=== PATIENT | female | born 1980 | race African-American/Black ===

== ENCOUNTER 2016-09-16 20:40 | Emergency (ER) | payer OTHER ==
[~2016-09-16] VITALS: Ht 180.3 cm; Wt 115.2 kg
[~2016-09-16 20:40] MED LIST: AMOXICILLIN500 MG ORAL; IBUPROFEN600 MG ORAL
[2016-09-16] MEDS ORDERED: NKM (21:08)
[2016-09-16] MEDS ORDERED: CYCLOBENZAPRINE10 MG ORAL (21:39)
[2016-09-16] MEDS ORDERED: Cyclobenzaprine 10mg Tab ORAL ONE (21:45)
[2016-09-16 22:01] LABS: APPEARANCE,URINE SLIGHTLY CLOUDY; KETONES,URINE NEGATIVE (NEGATIVE); LEUKOCYTE ESTERASE ,URINE 3+ (NEGATIVE); NITRITE,URINE NEGATIVE (NEGATIVE); PH,URINE 6.5 (4.5-8.0); PROTEIN,URINE 1+ (NEGATIVE); UROBILINOGEN,URINE 1 MG/DL (0.0-1.0)
[2016-09-16 22:26] LABS: BACTERIA,URINE MODERATE /HPF; SQUAMOUS EPITHELIAL CELL,UR FEW /LPF (NONE/OCC)
[2016-09-16] MEDS ORDERED: NITROFURANTOIN100 M2 ORAL (22:30)
[2016-09-17 00:35] VITALS: BP 125/82
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
== END 2016-09-16 22:09 | disposition home or self-care (01) ==
LOC: EMR 21:10
DX: S39.012A Strain of muscle, fascia and tendon of lower back, initial encounter (principal); V43.62XA Car passenger injured in collision with other type car in traffic accident, initial encounter; Y92.410 Unspecified street and highway as the place of occurrence of the external cause; N39.0 Urinary tract infection, site not specified; M51.36 Other intervertebral disc degeneration, lumbar region
CPT/HCPCS: 72020; 81001; 81025; 87086; 99284

== ENCOUNTER 2016-09-18 10:27 | Emergency (ER) | payer OTHER ==
[~2016-09-18] VITALS: Ht 180.3 cm; Wt 95.3 kg
[~2016-09-18 10:27] MED LIST changes: +CYCLOBENZAPRINE10 MG ORAL; +NITROFURANTOIN100 M2 ORAL; +NKM
[2016-09-18 10:40] VITALS: BP 105/70
[2016-09-18 10:45] VITALS: BP 105/70
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
== END 2016-09-18 10:45 | disposition home or self-care (01) ==
LOC: EMR 10:40
DX: Z02.79 Encounter for issue of other medical certificate (principal); M54.5 Low back pain
CPT/HCPCS: 99281

== ENCOUNTER 2017-07-04 08:56 | Emergency (ER) | payer OTHER ==
[~2017-07-04] VITALS: Ht 180.3 cm; Wt 127.0 kg
--- NOTE | 2017-07-04 09:14 | Emergency Room Report ---
History of Present Illness General Chief Complaint: Lower Extremity Injury Source: Patient Present Illness HPI Patient is a 36-year-old female presented after increased ankle and knee pain. Patient reports having fallen last night. She stated she twisted her ankle. The patient was noted to have pain to the leg. She reports having some pain with ambulation. She denies any numbness or tingling distally. Allergies: Coded Allergies: No Known Allergies (Unverified , 09/16/16) Patient History Past Medical History: see triage record Last Menstrual Period: 07/01/17 Now: No Reviewed Nursing Documentation: PMH: Agreed, PSxH: Agreed Nursing Documentation-PMH Past Medical History: No Stated History Review of Systems All Other Systems: negative except mentioned in HPI Physical Exam Vital Signs Date Time Temp Pulse Resp B/P (MAP) Pulse Ox O2 Delivery O2 Flow Rate FiO2 07/04/17 09:01 98.2 79 18 137/80 98 Room Air 98.2 General Appearance: well appearing, no apparent distress, alert, GCS 15, obese Head: normocephalic, atraumatic ENT: hearing grossly normal, normal voice Neck: full range of motion, supple Respiratory: no respiratory distress, speaking full sentences Cardiovascular #1: normal inspection, regular rate, rhythm Gastrointestinal: normal inspection, non tender, soft Musculoskeletal: no calf tenderness, decreased range of mation, inflammation, swelling - lateral ankle Neurologic: normal inspection, alert, oriented x3, responsive, executive business coach III-XII nml as tested, motor strength/tone normal, abnormal gait - antalgic Psychiatric: mood/affect normal Skin: no rash, other - swelling left ankle lateral malleolus Medical Decision Making Diagnostic Impression: Primary Impression: Ankle sprain Additional Impression: Avulsion fracture of ankle ER Course Patient presented for ankle pain. Differential diagnosis included was not limited to sprain, fracture, dislocation, cellulitis, vascular insufficiency. X -ray imaging of the ankle was ordered. Because of complexity of patient's case imaging studies were ordered.X-ray imaging showed very small avulsion from the tibia. The patient was placed in a air cast and given crutches. The patient is advised to follow up with primary care doctor in 1-2 daysfor orthopedic referal. Patient is advised to return if any worsening condition or if any changes in status that are concerning. This report is dictated with [employer] lead inspector software which may occasionally lead to discrepancies related to use of this software. Labs Test 07/04/17 09:18 Urine HCG, Qualitative Negative Last Vital Signs Date Time Temp Pulse Resp B/P (MAP) Pulse Ox O2 Delivery O2 Flow Rate FiO2 07/04/17 09:01 98.2 79 18 137/80 98 Room Air 98.2 Status: improved Disposition: HOME, SELF-CARE Condition: Stable Scripts Hydrocodone Bit/Acetaminophen 5-325* (NORCO 5-325*) 1 Each Tablet 1 TAB ORAL Q6H Y for For Pain, #20 TAB 0 Refills Prov: Keon Martinez 07/04/17 Ibuprofen* (MOTRIN*) 600 Mg Tablet 600 MG ORAL Q8H Y for For Pain, #20 TAB 0 Refills Prov: Keon Martinez 07/04/17 Keon Martinez Jul 04, 2017 09:14
[2017-07-04] MEDS ORDERED: Acetaminophen 500mg (ES) tab ORAL ONE (09:15)
[2017-07-04] MEDS ORDERED: IBUPROFEN600 MG ORAL (09:21)
[2017-07-04] MEDS ORDERED: NORCO 5-325 TA1 EACH ORAL (09:51)
[2017-07-04 10:00] VITALS: BP 120/72
--- NOTE | 2017-07-04 11:19 | Diagnostic Imaging Report ---
Indication: left ankle pain Comparison: None Findings: 3 views of the left ankle obtained. No acute fracture, malalignment, periostitis, or osteochondral defects are identified. Soft tissue swelling noted. Impression: No acute findings
== END 2017-07-04 10:00 | disposition home or self-care (01) ==
LOC: EMR 09:10
DX: M25.572 Pain in left ankle and joints of left foot (principal); S93.402A Sprain of unspecified ligament of left ankle, initial encounter; X50.1XXA Overexertion from prolonged static or awkward postures, initial encounter; Y92.9 Unspecified place or not applicable; S82.892A Other fracture of left lower leg, initial encounter for closed fracture; W19.XXXA Unspecified fall, initial encounter
CPT/HCPCS: 81025; 99284

== ENCOUNTER 2017-07-19 16:56 | Emergency (ER) | payer OTHER ==
[~2017-07-19] VITALS: Ht 177.8 cm; Wt 130.2 kg
[~2017-07-19 16:56] MED LIST changes: +NORCO 5-325 TA1 EACH ORAL
[2017-07-19 17:20] VITALS: BP 107/68
[2017-07-19] MEDS ORDERED: BACITRACIN-P28.35 GM TP (18:39)
--- NOTE | 2017-07-19 18:39 | Emergency Room Report ---
History of Present Illness General Chief Complaint: Skin Rash/Abscess Source: Patient Present Illness HPI 37 yo female patient presents to ER complaining of skin lesion on left inner thigh x2 weeks. States lesion became more irritated yesterday. Reports her tried to "pop it" and it began bleeding. Patient reports walking 15 miles yesterday when symptoms began to worsen. Patient denies fever, chest pain, SOB. Allergies: Coded Allergies: No Known Allergies (Unverified , 09/16/16) Patient History Past Medical History: see triage record Now: No Reviewed Nursing Documentation: PMH: Agreed, PSxH: Agreed Nursing Documentation-PMH Past Medical History: No Stated History Review of Systems All Other Systems: negative except mentioned in HPI Physical Exam Vital Signs Date Time Temp Pulse Resp B/P (MAP) Pulse Ox O2 Delivery O2 Flow Rate FiO2 07/19/17 17:10 97.5 80 17 107/68 97 Room Air 97.5 Sp02 EP Interpretation: reviewed, normal General Appearance: well appearing, no apparent distress, alert, GCS 15 Head: normocephalic, atraumatic Eyes: bilateral eye normal inspection, bilateral eye PERRL ENT: hearing grossly normal, normal pharynx, no angioedema, normal voice, uvula midline, moist mucus membranes Neck: full range of motion Respiratory: lungs clear, normal breath sounds, no rhonchi, no respiratory distress, no accessory muscle use, no wheezing, speaking full sentences Cardiovascular #1: regular rate, rhythm, no edema Musculoskeletal: back normal, digits/nails normal, gait/station normal, normal range of motion, non-tender Neurologic: alert, oriented x3, responsive, motor strength/tone normal, sensory intact Psychiatric: mood/affect normal Skin: other - skin tag <1cm in length, no active bleeding, no signs of infection, no surrounding cellulitis, TTP Lymphatic: no adenopathy Medical Decision Making PA Attestation Dr. Nicole is my supervising Physician whom patient management has been discussed with. Diagnostic Impression: Primary Impression: Skin tag ER Course Pt. presents to the ED c/o skin lesion. Ddx considered but are not limited to rash, cellulitis, nevi, skin tag. Vital signs: are WNL, pt. is afebrile Ordered Bacitracin. ER COURSE: Informed patient lesion consistent with a skin tag. Patient instructed not to pick or attempt to pop skin tag. Provided Bacitracin and wound dressing to area to prevent patient from rubbing lesion and prevent further irritation. Patient instructed to followup with primary care provider or rotary surface grinder for removal of skin tag; not performed in ER; her physician may want to send it to pathology. DISCHARGE: At this time pt. is stable for d/c to home. Patient resting comfortably, in no acute distress, nontoxic appearing, laughing and smiling. Will provide printed patient care instructions, and any necessary prescriptions. -Rx given for Bacitracin Care plan and follow up instructions have been discussed with the patient prior to discharge. Patient provided with list of healthcare clinics to establish primary care physician. Patient instructed to follow-up with primary care provider in 1-3 days. Patient questions asked and answered. Patient reports understanding and agreement to treatment plan. ER precautions given. Patient instructed to return to ER immediately for any new or worsening of symptoms including but not limited to increasing SOB, persistent fever. Last Vital Signs Date Time Temp Pulse Resp B/P (MAP) Pulse Ox O2 Delivery O2 Flow Rate FiO2 07/19/17 17:20 97.5 17 107/68 97 Room Air 97.5 07/19/17 17:10 80 Disposition: HOME, SELF-CARE Condition: Stable Scripts Bacitracin/Polymyxin B Sulfate (BACITRACIN-POLYMYXIN OINTMENT) 28.35 Gm Oint...g. 1 APPLIC TP BID for 7 Days, GM Prov: Guillermo Rojas 07/19/17 Referrals: [facility],REFERR[facility] (PCP) Patient Instructions: Bacitracin skin ointment, Cryosurgery for Skin Conditions , [id number] Additional Instructions: Followup with primary care provider in 1- 3 days for treatment and referral. Skin tag removed by primary care provider. Discuss referral to Dermatology. Take medications as directed. Patient questions asked and answered. ER precautions given, patient instructed to return to ER immediately for any new or worsening of symptoms. Guillermo Rojas Jul 19, 2017 18:39
[2017-07-19] MEDS ORDERED: Bacitracin Oint UD TOPIC ONE (18:45)
[2017-07-19 18:49] VITALS: BP 112/76
== END 2017-07-19 18:49 | disposition home or self-care (01) ==
LOC: EMR 18:08
DX: L91.8 Other hypertrophic disorders of the skin (principal)
CPT/HCPCS: 99283

== ENCOUNTER 2017-10-05 10:26 | Outpatient (CLI) | payer BC, OTHER ==
[~2017-10-05 10:26] MED LIST changes: +BACITRACIN-P28.35 GM TP
--- NOTE | 2017-10-06 15:32 | Diagnostic Imaging Report ---
Indication: Pain Technique: Left ankle/hindfoot imaging utilizing multiplanar T1 fast spin-echo, proton and T2 fast spin-echo with fat saturation, and STIR. Comparison: None Findings: There is bone marrow edema within the subchondral aspect of the talar dome suspicious for bone marrow contusion. Correlate clinically. There is a moderate amount of the fluid within the tibiotalar joint and the anterolateral gutter. The anterior talofibular ligament is attenuated and not well identified on this study, likely torn. There is overlying subcutaneous edema in the lateral part of the ankle. The posterior talofibular ligament is intact and demonstrated. The tibiofibular ligaments appear normal. The calcaneofibular ligament is probably torn and not well seen on this study. Peroneus longus and brevis tendons appear relatively normal. There is a small amount of fluid within the common tendon sheath. Achilles tendon and plantar aponeurosis appear unremarkable. There is motion artifact limiting evaluation. The posterior tibialis tendon, flexor digitorum longus and flexor hallucis longus appear unremarkable. The extensor tendons are unremarkable. Tarsal sinus is unremarkable. Deltoid ligamentous complex is grossly normal. IMPRESSION: Lateral ankle sprain with tears of the anterior talofibular ligament and calcaneofibular ligament suspected. Neither of these structures well seen. Moderate soft tissue swelling and fluid in the anterolateral gutter. Bone marrow contusion suspected within the talar dome. No linear signal to suggest acute fracture.
== END 2017-10-05 12:26 | disposition home or self-care (01) ==
LOC: MRI 10:26
DX: S93.402D Sprain of unspecified ligament of left ankle, subsequent encounter (principal); X58.XXXD Exposure to other specified factors, subsequent encounter